=== PATIENT | female | born 1995 | race African-American/Black ===

== ENCOUNTER 2016-10-24 14:18 | Emergency (ER) | payer MEDICAID, OTHER ==
[~2016-10-24] VITALS: Ht 167.6 cm; Wt 56.7 kg
[2016-10-24 15:03] LABS: Basophils # (auto) 0 uL; Basophils % (auto) 0.2 % (0.0-2.0); CONDITION Y; Eosinophils # (auto) 0.2 uL; Eosinophils % (auto) 1.4 % (0.0-7.0); Hematocrit 36.9 % (36.0-46.0); Hemoglobin 12.5 g/dL (12.2-16.2); Lymphocytes # (auto) 2.8 uL; Lymphocytes % (auto) 20.5 % (10.0-50.0); Mean Corpuscular Hemoglobin 30.7 pg (28.0-32.0); Mean Corpuscular Hgb Conc. 33.9 g/dL (32.0-36.0); Mean Corpuscular Volume 90.5 fL (80.0-100.0); Mean Platelet Volume 9.9 fL (7.4-10.4); Monocytes % (auto) 7.4 % (0.0-12.0); Neutrophils # (auto) 9.8 uL; Neutrophils % (auto) 70.5 % (37.0-80.0); Platelet Count (auto) 244 10^3/uL (140-450); Red Cell Distribution Width 13.5 % (11.6-16.0); White Blood Cell 13.9 10^3/uL (4.4-10.8)
[2016-10-24 15:25] LABS: Albumin 2.9 g/dL (3.4-5.0); BUN/Creatinine Ratio 13.5; Bilirubin, Total 0.4 mg/dL (0.2-1.0); Calcium 8.9 mg/dL (8.5-10.1); Potassium 3.6 mmol/L (3.5-5.1)
[2016-10-24 20:54] VITALS: BP 93/69
== END 2016-10-24 21:01 | disposition short-term general hospital (02) ==
LOC: ER 14:18
DX: O26.872 Cervical shortening, second trimester (principal); O09.92 Supervision of high risk pregnancy, unspecified, second trimester; O30.012 Twin pregnancy, monochorionic/monoamniotic, second trimester; Z3A.17 17 weeks gestation of pregnancy
CPT/HCPCS: 36415; 76805; 76817; 80053; 84702; 85025